=== PATIENT | female | born 1980 | race Caucasian/White ===

== ENCOUNTER 2016-09-15 18:37 | Emergency (ER) | payer OTHER ==
[2016-09-15] MEDS ORDERED: Ondansetron INJ* 2 MG/ML VIAL IV ONE (20:27)
[2016-09-15] MEDS ORDERED: NS 0.9% 1000 ML* 1,000 ML IV ONE (20:27)
[2016-09-15] MEDS ORDERED: Morphine INJ* 4 MG/ML 1 ML SYRINGE IV ONE (20:49)
[2016-09-15 20:54] LABS: Urine Bilirubin Negative (Negative); Urine Glucose Negative (Negative); Urine Nitrite Negative (Negative)
[2016-09-15 21:43] LABS: Hematocrit 41 % (35-47); Hemoglobin 13.6 g/dl (12.0-16.0); Mean Corpuscular HGB Conc 34 g/dl (31-36); Mean Corpuscular Hemoglobin 29 pg (27-31); Mean Corpuscular Volume 85 fL (80-97); Mean Platelet Volume 9 um3 (7.4-10.4); Red Cell Distribution Width 13 % (10.5-15); White Blood Count 7.6 10^3/ul (3.5-10.8)
[2016-09-15] MEDS ORDERED: Metoclopramide IV* 5 MG/ML 2 ML VIAL IV ONE (21:51)
[2016-09-15 21:58] LABS: Albumin 4.6 g/dL (3.2-5.2); BUN/Creatinine Ratio 14.7 (8-20); C Reactive Protein 10.98 mg/L (< 5.00); Calcium 9.7 mg/dL (8.6-10.3); EGFR African American 128.2 (>60); EGFR Non-African American 99.6 (>60); Potassium 3.9 mmol/L (3.5-5.0); Total Bilirubin 1.1 mg/dL (0.2-1.0); Total Protein 7.6 g/dL (6.4-8.9)
[2016-09-15 22:23] LABS: Mono Internal Control QC Line Present
[2016-09-15] MEDS ORDERED: Iohexol 300* (CONTRAST) 10 ML SDV IV ONE (22:37)
[2016-09-15] MEDS ORDERED: Ketorolac INJ* 30 MG/ML 1 ML VIAL IV PUSH ONE (23:57)
[2016-09-16 01:07] VITALS: BP 122/73
--- NOTE | 2016-09-16 07:44 | RAD ---
INDICATION: Abdominal pain. COMPARISON: There are no prior studies available for comparison. TECHNIQUE: A CT scan of the abdomen and pelvis was performed with intravenous and oral contrast following intravenous injection of 72 ml of Omnipaque 300 nonionic contrast. Contiguous axial sections were obtained from the lung bases through the symphysis pubis. Images were reconstructed in the coronal and sagittal planes. FINDINGS: The lung bases are clear. No pleural effusion is present. The liver and spleen are within normal limits in size without significant focal abnormality. No calcified gallstones are seen. The pancreas appears to be within normal limits in size. The kidneys and adrenal glands are normal in size. No hydronephrosis is seen. No significant focal renal abnormality is seen. The aorta is normal in caliber and demonstrates homogeneous contrast opacification. No significant enlarged retroperitoneal lymph nodes are seen. The stomach, small and large bowel appear nondistended. The appendix is within normal limits. There is no evidence for diverticulitis or colitis. The uterus is anteverted and normal in size. There is a 1.9 x 1.4 cm right ovarian cyst. No free intraperitoneal air or fluid is seen. No significant focal osseous abnormality is seen. IMPRESSION: 1. NO EVIDENCE FOR ACUTE INTRA-ABDOMINAL ABNORMALITY OR CAUSE FOR THE PATIENT'S ABDOMINAL PAIN IS SEEN. 2. SMALL 1.9 CM RIGHT OVARIAN CYST.
--- NOTE | 2016-11-16 14:56 | ED ---
Abdominal Pain/Female - HPI Summary HPI Summary: Pt here w/ Rt sided ab pain over past 2 weeks, worse as of late. Recently had blood work done to asses her irregular menstrual cycle. H/o multiple pregnancies , one was missed miscarriage requiring D&C. No known h/o PCOS or ovarian cyst. Denies vaginal d/c, irritation. Does not feel she could have an STD and does not want testing for this today. Associated sx are nausea. Denies vomiting, diarrhea, fever, chills, CP, SOB, back pain, skin changes. Still eating and drinking but has a reduced appetite. Denies dysuria, urinary frequency, flank pain. - History of Current Complaint Chief Complaint: EDAbdPain Stated Complaint: SENT FROM [facility] ABD PAIN,FEVER Time Seen by Provider: 09/15/16 20:27 Hx Obtained From: Patient Hx Last Menstrual Period: 07/19/12 Pain Intensity: 0 Pain Scale Used: 0-10 Numeric Allergies/Adverse Reactions: Allergies Allergy/AdvReac Type Severity Reaction Status Date / Time Erythromycin Allergy Hives Verified 09/26/16 19:21 Latex Allergy Hives Verified 09/26/16 19:21 Penicillins Allergy Hives Verified 09/26/16 19:21 bee stings Allergy Hives/Diff. Uncoded 09/26/16 19:21 Breathing/I tching PMH/Surg Hx/FS Hx/Imm Hx Previously Healthy: Yes Endocrine/Hematology History: Denies: Hx Anticoagulant Therapy, Hx Blood Disorders, Hx Diabetes, Hx Thyroid Disease, Hx Unexplained Bleeding Cardiovascular History: Denies: Hx Hypertension Respiratory History: Denies: Hx Asthma, Hx Chronic Obstructive Pulmonary Disease (COPD) GI History: Denies: Hx Ulcer History: Reports: Other Problems/Disorders - irregular menstrual cycle - Surgical History Surgery Procedure, Year, and Place: D&C FEB 2013 - Immunization History Date of Tetanus Vaccine: Up to date Date of Influenza Vaccine: Fall 2012 Infectious Disease History: No Infectious Disease History: Denies: Hx Hepatitis, Hx Human Immunodeficiency Virus (HIV), Traveled Outside the [place] in Last 30 Days - Social History Alcohol Use: None Hx Substance Use: No Substance Use Type: Reports: None Hx Tobacco Use: No Smoking Status (MU): Never Smoked Tobacco Review of Systems Constitutional: Negative Negative: Fever, Chills Cardiovascular: Negative Negative: Chest Pain Negative: Shortness Of Breath Positive: Abdominal Pain - see HPI, Nausea - see HPI. Negative: Vomiting, Diarrhea Genitourinary: Negative Positive: see HPI Negative: Bruising Neurological: Negative Psychological: Normal All Other Systems Reviewed And Are Negative: Yes Physical Exam Triage Information Reviewed: Yes Vital Signs On Initial Exam: Initial Vitals Temp Pulse Resp BP Pulse Ox 98.9 F 104 16 111/66 100 09/15/16 18:39 09/15/16 18:39 09/15/16 18:39 09/15/16 18:39 09/15/16 18:39 Vital Signs Reviewed: Yes Appearance: Positive: Well-Appearing, Well-Nourished, Pain Distress - mild to moderate Skin: Positive: Warm, Dry Head/Face: Positive: Normal Head/Face Inspection Eyes: Positive: Normal, Conjunctiva Clear ENT: Positive: Hearing grossly normal Neck: Positive: Supple - no gross thyromegaly Respiratory/Lung Sounds: Positive: Clear to Auscultation, Breath Sounds Present Cardiovascular: Positive: Normal, RRR, S1, S2 Abdomen Description: Positive: No Organomegaly, Soft, Other: - generalized ab tenderness but most over Rt sided ab - no rebounding. Negative: CVA Tenderness (R), CVA Tenderness (L) Bowel Sounds: Positive: Present Musculoskeletal: Positive: Normal, Strength/ROM Intact Neurological: Positive: Normal, Sensory/Motor Intact, Alert, Oriented to Person Place, Time, CN Intact II-III Psychiatric: Positive: Normal - concerned Diagnostics - Vital Signs Vital Signs Temp Pulse Resp BP Pulse Ox 09/16/16 00:31 72 14 122/73 09/15/16 21:26 18 09/15/16 19:23 98.2 F 94 16 111/47 100 09/15/16 18:39 98.9 F 104 16 111/66 100 - Laboratory Lab Results: Lab Results 09/15/16 09/15/16 09/15/16 Range/Units 19:30 21:30 21:30 WBC 7.6 (3.5-10.8) 10^3/ul RBC 4.80 (4.0-5.4) 10^6/ul Hgb 13.6 (12.0-16.0) g/dl Hct 41 (35-47) % MCV 85 (80-97) fL MCH 29 (27-31) pg MCHC 34 (31-36) g/dl RDW 13 (10.5-15) % Plt Count 261 (150-450) 10^3/ul MPV 9 (7.4-10.4) um3 Neut % (Auto) 73.0 (38-83) % Lymph % (Auto) 15.9 L (25-47) % [place] % (Auto) 10.4 H (1-9) % Eos % (Auto) 0.3 (0-6) % Baso % (Auto) 0.4 (0-2) % Absolute Neuts (auto) 5.6 (1.5-7.7) 10^3/ul Absolute Lymphs (auto) 1.2 (1.0-4.8) 10^3/ul Absolute Monos (auto) 0.8 (0-0.8) 10^3/ul Absolute Eos (auto) 0 (0-0.6) 10^3/ul Absolute Basos (auto) 0 (0-0.2) 10^3/ul Absolute Nucleated RBC 0.01 10^3/ul Nucleated RBC % 0.1 Sodium 135 (133-145) mmol/L Potassium 3.9 (3.5-5.0) mmol/L Chloride 102 (101-111) mmol/L Carbon Dioxide 26 (22-32) mmol/L Anion Gap 7 (2-11) mmol/L BUN 10 (6-24) mg/dL Creatinine 0.68 (0.51-0.95) mg/dL Est GFR ( Amer) 128.2 (>60) Est GFR (Non-Af Amer) 99.6 (>60) BUN/Creatinine Ratio 14.7 (8-20) Glucose 100 (70-100) mg/dL Lactic Acid (0.5-2.0) mmol/L Calcium 9.7 (8.6-10.3) mg/dL Total Bilirubin 1.10 H (0.2-1.0) mg/dL AST 20 (13-39) U/L ALT 21 (7-52) U/L Alkaline Phosphatase 44 (34-104) U/L C-Reactive Protein 10.98 H (< 5.00) mg/L Total Protein 7.6 (6.4-8.9) g/dL Albumin 4.6 (3.2-5.2) g/dL Globulin 3.0 (2-4) g/dL Albumin/Globulin Ratio 1.5 (1-3) Lipase 25 (11.0-82.0) U/L Urine Color Straw Urine Appearance Clear Urine pH 7.0 (5-9) Ur Specific [place] 1.008 L (1.010-1.030) Urine Protein Negative (Negative) Urine Ketones Negative (Negative) Urine Blood Negative (Negative) Urine Nitrate Negative (Negative) Urine Bilirubin Negative (Negative) Urine Urobilinogen Negative (Negative) Ur Leukocyte Esterase Negative (Negative) Urine Glucose Negative (Negative) Monoscreen Negative (Negative) 09/15/16 Range/Units 21:30 WBC (3.5-10.8) 10^3/ul RBC (4.0-5.4) 10^6/ul Hgb (12.0-16.0) g/dl Hct (35-47) % MCV (80-97) fL MCH (27-31) pg MCHC (31-36) g/dl RDW (10.5-15) % Plt Count (150-450) 10^3/ul MPV (7.4-10.4) um3 Neut % (Auto) (38-83) % Lymph % (Auto) (25-47) % [place] % (Auto) (1-9) % Eos % (Auto) (0-6) % Baso % (Auto) (0-2) % Absolute Neuts (auto) (1.5-7.7) 10^3/ul Absolute Lymphs (auto) (1.0-4.8) 10^3/ul Absolute Monos (auto) (0-0.8) 10^3/ul Absolute Eos (auto) (0-0.6) 10^3/ul Absolute Basos (auto) (0-0.2) 10^3/ul Absolute Nucleated RBC 10^3/ul Nucleated RBC % Sodium (133-145) mmol/L Potassium (3.5-5.0) mmol/L Chloride (101-111) mmol/L Carbon Dioxide (22-32) mmol/L Anion Gap (2-11) mmol/L BUN (6-24) mg/dL Creatinine (0.51-0.95) mg/dL Est GFR ( Amer) (>60) Est GFR (Non-Af Amer) (>60) BUN/Creatinine Ratio (8-20) Glucose (70-100) mg/dL Lactic Acid 1.0 (0.5-2.0) mmol/L Calcium (8.6-10.3) mg/dL Total Bilirubin (0.2-1.0) mg/dL AST (13-39) U/L ALT (7-52) U/L Alkaline Phosphatase (34-104) U/L C-Reactive Protein (< 5.00) mg/L Total Protein (6.4-8.9) g/dL Albumin (3.2-5.2) g/dL Globulin (2-4) g/dL Albumin/Globulin Ratio (1-3) Lipase (11.0-82.0) U/L Urine Color Urine Appearance Urine pH (5-9) Ur Specific [place] (1.010-1.030) Urine Protein (Negative) Urine Ketones (Negative) Urine Blood (Negative) Urine Nitrate (Negative) Urine Bilirubin (Negative) Urine Urobilinogen (Negative) Ur Leukocyte Esterase (Negative) Urine Glucose (Negative) Monoscreen (Negative) Result Diagrams: 09/15/16 21:30 09/15/16 21:30 Lab Statement: Any lab studies that have been ordered have been reviewed, and results considered in the medical decision making process. Re-Evaluation - Re-Evaluation First Eval Change: Improved - pain improved but nausea still present despite zofran - ordered reglan Abdominal Pain Fem Course/Dx - Course Course Of Treatment: Pt presents w/ ab pain, most notably over Rt side. HPI and clinical exam along w/ CT reveal Rt sided ovarian cyst which is most likely triggering her sx over past 2 weeks. Gave tx instructions today and advised f/u w/ PCP this week. Return to ED if danger s/sx present. - Diagnoses Provider Diagnoses: Ovarian cyst, right Discharge - Discharge Plan Condition: Stable Disposition: HOME Prescriptions: Ondansetron TAB* [Zofran 4 MG Tab*] 4 mg PO Q8HR PRN #9 tab PRN Reason: Nausea Patient Education Materials: Ovarian Cyst (ED) Referrals: Agapito Winter MD [Primary Care Provider] - Additional Instructions: You appear to have a 2cm cyst in your Right adnexal space (pelvic space that houses your ovaries). This may be causing your pain. It is best treated with anti-inflammatories (ie. ibuoprofen, naproxen sodium, etc). It is advised that you take this medication with food as needed for pain. You may also try heat pack with or without castor oil. Follow-up with [facility] as scheduled. *If you develop worsening abdominal pain, vomiting, diarrhea, fever, chest pain or difficulty breathing, return to ED
== END 2016-09-16 00:31 | disposition home or self-care (01) ==
LOC: ED 18:37
DX: N83.201 Unspecified ovarian cyst, right side (principal); R10.9 Unspecified abdominal pain
CPT/HCPCS: 36415; 74177; 80053; 81003; 83605; 83690; 85025; 86140; 86308; 96374; 96375; 99282; J1885; J2270; J2405; Q9967

== ENCOUNTER 2016-09-26 19:10 | Emergency (ER) | payer OTHER ==
[2016-09-26] MEDS ORDERED: NS 0.9% 1000 ML* 1,000 ML IV ONE (19:54)
[2016-09-26] MEDS ORDERED: Ondansetron INJ* 2 MG/ML VIAL IV ONE (19:54)
[2016-09-26 20:24] LABS: Hematocrit 37 % (35-47); Hemoglobin 12.7 g/dl (12.0-16.0); Mean Corpuscular HGB Conc 35 g/dl (31-36); Mean Corpuscular Hemoglobin 29 pg (27-31); Mean Corpuscular Volume 85 fL (80-97); Mean Platelet Volume 9 um3 (7.4-10.4); Red Blood Count 4.34 10^6/ul (4.0-5.4); Red Cell Distribution Width 13 % (10.5-15); White Blood Count 9.3 10^3/ul (3.5-10.8)
[2016-09-26 20:28] LABS: Urine Bilirubin Negative (Negative); Urine Glucose Negative (Negative); Urine Nitrite Negative (Negative)
[2016-09-26 20:38] LABS: ALT 14 U/L (7-52); AST 15 U/L (13-39); Albumin 4.4 g/dL (3.2-5.2); Alkaline Phosphatase 52 U/L (34-104); Anion Gap 8 mmol/L (2-11); BUN/Creatinine Ratio 12.8 (8-20); Blood Urea Nitrogen 11 mg/dL (6-24); C Reactive Protein 8.41 mg/L (< 5.00); CO2 Carbon Dioxide 27 mmol/L (22-32); Calcium 9.1 mg/dL (8.6-10.3); Chloride 100 mmol/L (101-111); EGFR African American 97.7 (>60); Glucose 99 mg/dL (70-100); Lipase 25 U/L (11.0-82.0); Potassium 3.8 mmol/L (3.5-5.0); Sodium 135 mmol/L (133-145); Total Protein 7.4 g/dL (6.4-8.9)
[2016-09-26 20:53] LABS: Manual Entry Verification ROB0080; Mono Internal Control QC Line Present
--- NOTE | 2016-09-26 21:27 | RAD ---
Indication: Abdominal pain. Real-time sonography of the abdomen was performed. Liver is normal in size. No focal lesions or intrahepatic ductal dilatation is noted. The gallbladder demonstrates no gallstones, pericholecystic fluid or wall thickening. Common duct measures up to 7 mm. Right kidney measures 11.6 x 5.3 x 4.5 cm with no hydronephrosis. Left kidney measures 11.1 x 4.4 x 4.4 cm with no hydronephrosis. Pancreas head, neck and proximal body demonstrates no mass or pancreatic duct dilatation. The spleen is normal in size. IMPRESSION: No evidence of cholelithiasis or biliary duct dilatation is noted.
--- NOTE | 2016-09-26 21:38 | ED ---
Carroll Johnson Aidan, scribed for Arturo Carlton MD on 09/26/16 at 2040 . Abdominal Pain/Female - HPI Summary HPI Summary: 35 y/o female presents to the ED with a complaint of acute, mild episodes of diffuse abdominal pain described as dull aches and acute, severe episodes of sharp, LLQ abdominal pain that occur after the onset of fevers. Symptoms began roughly 1 month ago and have persisted intermittently. 2 weeks ago, she came to the ED with the same symptoms and was diagnosed with an ovarian cyst. She was given a CT and, as instructed, she followed up with her [facility] after being discharged. Today at around 1630, she had a fever of 102 and was unable to move. Shortly after the onset of her fever, she began having an episode of severe, sharp LLQ abdominal pain that radiated downward. Associated symptoms include nausea, 1 episode of dysuria several days ago, and an inability to eat during her episodes of abdominal pain. She denies any diarrhea or vomiting. Since onset, she has had fevers followed by the sharp LLQ abdominal pain 1-3x per week. The fevers typically last all day. On some days when she does not have a fever, she gets a mild dull, diffuse abdominal ache and on other days she feels fine. Though her periods have been irregular, she believes that the irregularities are unrelated to her other symptoms. Currently, she has a DANIELLE and sharp, severe (9/10) LLQ abdominal pain. Prior to a month ago, she was fine. - History of Current Complaint Chief Complaint: EDAbdPain Stated Complaint: ABD PAIN/NAUSEA Time Seen by Provider: 09/26/16 19:44 Hx Obtained From: Patient Hx Last Menstrual Period: 07/19/12 ?: No Onset/Duration: Sudden Onset, Lasting Weeks, Still Present Timing: Intermittent Episode Lasting - lasting hours to days Severity Initially: Mild - Sx began with a mild, dull, diffuse abdominal ache, but she sometimes gets a severe sharp LLQ abdominal pain Severity Currently: Severe Pain Intensity: 9 Pain Scale Used: 0-10 Numeric Location: Discrete At: LLQ Radiates: Yes Radiates to: Other - downward Character: Sharp - (see HPI for details) Aggravating Factor(s): Other: - unknown Alleviating Factor(s): Other: - unknown Associated Signs and Symptoms: Positive: Fever - frequent fevers ranging between 100-102. Today her fever was 102, Nausea, Other: - DANIELLE currently, episode of dysuria a couple of days ago, inability to eat during episodes of abdominal pain. Negative: Vomiting, Diarrhea Simlar Episode/Dx as:: 2 weeks ago, Dx as ovarian cyst Allergies/Adverse Reactions: Allergies Allergy/AdvReac Type Severity Reaction Status Date / Time Erythromycin Allergy Hives Verified 09/26/16 19:21 Latex Allergy Hives Verified 09/26/16 19:21 Penicillins Allergy Hives Verified 09/26/16 19:21 bee stings Allergy Hives/Diff. Uncoded 09/26/16 19:21 Breathing/I tching PMH/Surg Hx/FS Hx/Imm Hx Endocrine/Hematology History: Denies: Hx Diabetes, Hx Thyroid Disease Cardiovascular History: Denies: Hx Hypertension Respiratory History: Denies: Hx Asthma, Hx Chronic Obstructive Pulmonary Disease (COPD) GI History: Denies: Hx Ulcer - Surgical History Surgery Procedure, Year, and Place: D&C FEB 2013 - Immunization History Date of Tetanus Vaccine: Up to date Date of Influenza Vaccine: Fall 2012 Infectious Disease History: No Infectious Disease History: Denies: Hx Hepatitis, Hx Human Immunodeficiency Virus (HIV), Traveled Outside the [place] in Last 30 Days - Family History Known Family History: Positive: Hypertension - Social History Occupation: Employed Full-time Lives: With Family Alcohol Use: None Substance Use Type: Reports: None Smoking Status (MU): Never Smoked Tobacco Review of Systems Positive: Fever - 102 today. Negative: Chills, Fatigue, Skin Diaphoresis Eyes: Negative ENT: Negative Cardiovascular: Negative Respiratory: Negative Positive: Abdominal Pain, Nausea, Other - inability to eat during . Negative: Vomiting, Diarrhea Positive: dysuria - x1. Negative: burning, discharge, frequency, flank pain, hematuria, incontinence, pain, urgency Musculoskeletal: Negative Skin: Negative Positive: Headache. Negative: Weakness, Paresthesia, Numbness, Syncope, Slurred Speech Psychological: Normal All Other Systems Reviewed And Are Negative: Yes Physical Exam Triage Information Reviewed: Yes Vital Signs On Initial Exam: Initial Vitals Temp Pulse Resp BP Pulse Ox 100.6 F 116 16 108/62 100 09/26/16 19:10 09/26/16 19:10 09/26/16 19:10 09/26/16 19:10 09/26/16 19:10 Vital Signs Reviewed: Yes Appearance: Positive: Well-Appearing, No Pain Distress Skin: Positive: Warm Head/Face: Positive: Normal Head/Face Inspection Eyes: Positive: EOMI, ABBY ENT: Positive: Hearing grossly normal Neck: Positive: Supple Respiratory/Lung Sounds: Positive: Clear to Auscultation, Breath Sounds Present Cardiovascular: Positive: RRR Abdomen Description: Positive: Nontender, No Organomegaly, Soft Bowel Sounds: Positive: Present Musculoskeletal: Positive: Strength/ROM Intact Neurological: Positive: Sensory/Motor Intact, Alert, Oriented to Person Place, Time, Normal Gait Psychiatric: Positive: Affect/Mood Appropriate Diagnostics - Vital Signs Vital Signs Temp Pulse Resp BP Pulse Ox 09/26/16 19:15 100.6 F 116 16 108/62 100 09/26/16 19:10 100.6 F 116 16 108/62 100 - Laboratory Lab Results: Lab Results 09/26/16 09/26/16 Range/Units 20:10 20:10 WBC 9.3 (3.5-10.8) 10^3/ul RBC 4.34 (4.0-5.4) 10^6/ul Hgb 12.7 (12.0-16.0) g/dl Hct 37 (35-47) % MCV 85 (80-97) fL MCH 29 (27-31) pg MCHC 35 (31-36) g/dl RDW 13 (10.5-15) % Plt Count 258 (150-450) 10^3/ul MPV 9 (7.4-10.4) um3 Neut % (Auto) 82.6 (38-83) % Lymph % (Auto) 7.1 L (25-47) % [place] % (Auto) 8.6 (1-9) % Eos % (Auto) 1.5 (0-6) % Baso % (Auto) 0.2 (0-2) % Absolute Neuts (auto) 7.7 (1.5-7.7) 10^3/ul Absolute Lymphs (auto) 0.7 L (1.0-4.8) 10^3/ul Absolute Monos (auto) 0.8 (0-0.8) 10^3/ul Absolute Eos (auto) 0.1 (0-0.6) 10^3/ul Absolute Basos (auto) 0 (0-0.2) 10^3/ul Absolute Nucleated RBC 0 10^3/ul Nucleated RBC % 0 Urine Color Colorless Urine Appearance Clear Urine pH 8.0 (5-9) Ur Specific [place] 1.002 L (1.010-1.030) Urine Protein Negative (Negative) Urine Ketones Negative (Negative) Urine Blood Negative (Negative) Urine Nitrate Negative (Negative) Urine Bilirubin Negative (Negative) Urine Urobilinogen Negative (Negative) Ur Leukocyte Esterase Negative (Negative) Urine Glucose Negative (Negative) Monoscreen Pending Result Diagrams: 09/26/16 20:10 09/26/16 20:10 Lab Statement: Any lab studies that have been ordered have been reviewed, and results considered in the medical decision making process. - Ultrasound No standard instances Ultrasound Interpretation: No Acute Changes - ABD US IMPRESSION: No evidence of cholelithiasis or biliary duct dilatation is noted. Ultrasound Interpretation Completed By: Radiologist Re-Evaluation - Re-Evaluation First Eval Change: Improved - results d/w pt Abdominal Pain Fem Course/Dx - Course Course Of Treatment: 35 y/o female presents to the ED with a complaint of acute , mild episodes of diffuse abdominal pain described as dull aches and acute, severe episodes of sharp, LLQ abdominal pain that occur after the onset of fevers. Today, she had a fever of 102 that was followed by severe, sharp, LLQ abdominal pain that radiated downward. Currently, she still has the abdominal pain and has developed a headache. Abdominal US results were negative. The patient will be discharged with abdominal pain and referred to Dr. Willett, a GI specialist. - Diagnoses Provider Diagnoses: Abdominal pain Discharge - Discharge Plan Condition: Stable Disposition: HOME Discharge Disposition Comment: Please follow up with either your PCP or Dr. Willett in GI within 2 days. Patient Education Materials: Acute Abdominal Pain (ED) Referrals: Agapito Winter MD [Primary Care Provider] - Hermann Willett MD [Medical Doctor] - The documentation as recorded by the Carroll crum Aidan accurately reflects the service I personally performed and the decisions made by me, Arturo Carlton MD.
[2016-09-26 21:59] VITALS: BP 111/65
== END 2016-09-26 21:53 | disposition home or self-care (01) ==
LOC: ED 19:10
DX: R10.32 Left lower quadrant pain (principal); R50.9 Fever, unspecified
CPT/HCPCS: 36415; 76700; 80053; 81003; 83605; 83690; 83735; 84702; 85025; 86140; 86308; 96374; 99282; J2405